=== PATIENT | male | born 1955 | race Caucasian/White ===

== ENCOUNTER 2022-01-11 15:15 | Emergency (ER) | payer MEDICARE, BC ==
[~2022-01-11] VITALS: Ht 175.3 cm; Wt 90.7 kg
[2022-01-11 15:16] VITALS: BP 154/99
[2022-01-11] MEDS ORDERED: ROSU5TAB5 PO (15:26)
[2022-01-11] MEDS ORDERED: LOSA25TA13 PO (15:26)
[2022-01-11] MEDS ORDERED: HYDR-3490 PO (15:26)
[2022-01-11] MEDS ORDERED: FLUORESCEIN OPHTH 1 MG STRIP OU ONE (16:40)
[2022-01-11] MEDS ORDERED: TETRACAINE 0.5% OPHTH SOLN 4ML OU ONE (16:40)
[2022-01-11] MEDS ORDERED: OFLOXACIN 0.3 % (OCUFLOX) OPTH SOL 5ML OS STA (17:08)
[2022-01-11] MEDS ORDERED: OCUF0.25 OP (17:16)
== END 2022-01-11 17:35 | disposition home or self-care (01) ==
LOC: M ED 15:15
DX: H10.32 Unspecified acute conjunctivitis, left eye (principal); I10 Essential (primary) hypertension; Z79.899 Other long term (current) drug therapy